=== PATIENT | female | born 1975 | race Caucasian/White ===

== ENCOUNTER 2018-10-23 10:28 | Emergency (ER) | payer MEDICAID ==
[2018-10-23] MEDS ORDERED: IPRATROPIUM/ALBUTEROL 0.5-2.5 MG/3 ML AMPUL NEB ONE (10:54)
--- NOTE | 2018-10-23 10:55 | ER Document Report ---
ED General - General Chief Complaint: Cough Stated Complaint: SHORT OF BREATH/COUGH Time Seen by Provider: 10/23/18 10:46 Primary Care Provider: [facility] [Provider Group] - Follow up in 3-5 days (or your primary care. ) Notes: Patient is a 42-year-old female that presents to the emergency department for chief complaint of cough, shortness of breath and wheezing. Patient states she is having symptoms for about a month now without much event, she has not seek attention to have this treated. She admits that she smokes 1/2 pack to a pack of cigarettes daily she is been doing this for some time now. She states that it seems a worse with lying down, denies any associated chest pain with this. Denies any nausea, vomiting, fevers, chills, night sweats, dysuria, hematuria or any other symptoms at this time. Past Medical History: Denies chronic medical conditions Past Surgical History: Denies surgical history Social History: Admits to smoking cigarettes daily, denies alcohol or drug use. Family History: Reviewed and noncontributory for presenting illness Allergies: Reviewed, see documented allergy list. REVIEW OF SYSTEMS: Other than noted above, the 12 point review of systems was reviewed with the patient and were negative, all pertinent findings are included in the HPI. PHYSICAL EXAMINATION: Vital signs reviewed, nursing noted reviewed. GENERAL: Well-appearing, well-nourished and in no acute distress. HEAD: Atraumatic, normocephalic. EYES: Eyes appear normal, extraocular movements intact, sclera anicteric, conjunctiva are normal. ENT: nares patent, oropharynx clear without exudates. Moist mucous membranes. NECK: Normal range of motion, supple without lymphadenopathy LUNGS: No increased work of breathing or respiratory distress, however there is noted to be bilateral wheezing noted throughout all lung rose with expiration. HEART: Regular rate and rhythm without murmurs ABDOMEN: Soft, nontender, normoactive bowel sounds. No rebound, guarding, or rigidity. No masses appreciated. EXTREMITIES: Nontender, good range of motion, no pitting or edema. NEUROLOGICAL: No focal neurological deficits. Moves all extremities spontaneously Motor and sensory grossly intact on exam. PSYCH: Normal mood, normal affect. SKIN: Warm, Dry, normal turgor, no rashes or lesions noted on exposed skin - Related Data Allergies/Adverse Reactions: No Known Allergies Allergy (Verified 10/23/18 10:41) Past Medical History - Social History Smoking Status: Current Every Day Smoker Frequency of alcohol use: Occasional Drug Abuse: None Family History: Reviewed & Not Pertinent Patient has suicidal ideation: No Patient has homicidal ideation: No Renal/ Medical History: Denies: Hx Peritoneal Dialysis Physical Exam - Vital signs Vitals: Temp Pulse Resp BP Pulse Ox 98.2 F 92 22 H 146/88 H 99 10/23/18 10:33 10/23/18 10:33 10/23/18 10:33 10/23/18 10:33 10/23/18 10:33 Course - Re-evaluation Re-evalutation: Patient seen and examined vital signs reviewed. Imaging ordered as appropriate for the patient's presenting symptoms and complaint, with consideration of any critical or life threatening conditions that may be associated with their obtained history and exam as noted above. SMOKING CESSATION EDUCATION: 5 minutes were spent discussing the risks of smoking, and benefits of cessation, particularly in her case that is causing her to have cough and wheezing, requiring medical treatment, patient states she will do her best to try to discontinue smoking, and cut back as much as possible if not quit completely. Patient was treated with DuoNeb breathing treatments Results were reviewed when available and demonstrated negative chest x-ray The patient was re-evaluated and was much improved, wheezing resolved Evaluation was most consistent with bronchospasm, patient given albuterol inhaler and spacer from the ED, and given prescription for prednisone for 5 days advised to follow-up with her primary care physician. Results were discussed with the patient at this point, after careful consideration I feel that that patient can be discharged from the emergency department, the patient was educated treatments and reasons to return to the emergency department based on their presumed diagnosis as noted above, they were advised to followup with a primary care physician in 2-3 days. Patient was agreeable to plan of care. *Note is created using voice recognition software and may contain spelling, syntax or grammatical errors. Chest X-Ray 10/23/18 10:54 IMPRESSION: NO ACUTE RADIOGRAPHIC FINDING IN THE CHEST. - Vital Signs Vital signs: Temp Pulse Resp BP Pulse Ox 98.2 F 92 16 149/76 H 100 10/23/18 10:33 10/23/18 10:33 10/23/18 11:56 10/23/18 11:56 10/23/18 11:56 Discharge - Discharge Clinical Impression: Bronchospasm Condition: Stable Disposition: HOME, SELF-CARE Instructions: Bronchospasm ([facility]) Additional Instructions: Please use the albuterol inhaler that is been given from the emergency department, 2 puffs at least 4 times daily, with the spacer, with the spacer you should be taking 6-10 breaths, after an actuation of the inhaler, please use 4 times daily for the next 5-7 days, and then every 4 hours as needed. Please complete the entire course of prescribed prednisone, which is the steroid that is been prescribed for the next 5 days. Prescriptions: RX: Prednisone [Deltasone 10 mg Tablet] 40 mg PO DAILY #20 tablet Forms: Smoking Cessation Education, Return to Work Referrals: [facility] [Provider Group] - Follow up in 3-5 days (or your primary care. )
--- NOTE | 2018-10-23 11:18 | RADIOLOGY REPORT (SQ) ---
EXAM DESCRIPTION: CHEST 2 VIEWS COMPLETED DATE/TIME: 10/23/2018 11:11 am REASON FOR STUDY: cough COMPARISON: None. EXAM PARAMETERS: NUMBER OF VIEWS: two views TECHNIQUE: Digital Frontal and Lateral radiographic views of the chest acquired. RADIATION DOSE: NA LIMITATIONS: none FINDINGS: LUNGS AND PLEURA: No opacities, masses or pneumothorax. No pleural effusion. MEDIASTINUM AND HILAR STRUCTURES: No masses or contour abnormalities. HEART AND VASCULAR STRUCTURES: Heart normal size. No evidence for failure. BONES: No acute findings. HARDWARE: None in the chest. OTHER: No other significant finding. IMPRESSION: NO ACUTE RADIOGRAPHIC FINDING IN THE CHEST. TECHNICAL DOCUMENTATION: JOB ID: [id number] [employer]- All Rights Reserved Reading location - IP/workstation name: [email or web address]
[2018-10-23] MEDS ORDERED: ALBUTEROL SULFATE HFA (90 MCG/PUFF) 8 GM MDI (1 MDI/ER DISP) IH ONE (11:36)
[2018-10-23 12:04] VITALS: BP 149/76
== END 2018-10-23 11:57 | disposition home or self-care (01) ==
LOC: ER 10:28
DX: J98.01 Acute bronchospasm (principal); R05 Cough; R06.02 Shortness of breath; R06.2 Wheezing; F17.210 Nicotine dependence, cigarettes, uncomplicated; Z71.6 Tobacco abuse counseling
CPT/HCPCS: 94640; 99283; 71046; J3490; J7620